=== PATIENT | male | born 1940 | race Caucasian/White ===

== ENCOUNTER 2018-05-13 10:41 | Outpatient (CLI) | payer MEDICARE, BC ==
--- NOTE | 2018-05-13 12:04 | RAD ---
THREE VIEWS LUMBAR SPINE: History: Patient complaining of back pain. Technique: Lateral, flexion, and extension views of the lumbar spine obtained. Comparison: 01-15-05 FINDINGS: Images demonstrate disc space height loss which is significantly increased since the previous compari son radiograph of the lumbar spine at L4-5. There is increasing anterolisthesis of L4 on L5 with appr oximately 10 mm of anterolisthesis of L4 on L5. This does not significantly change on flexion or exte nsion views. There is also some disc space height loss at L5-S1. IMPRESSION: Grade II anterolisthesis of L4 on L5 which does not significantly change on neutral, flexion, or exte nsion views. POS: [facility]
--- NOTE | 2018-05-13 12:35 | MRI ---
MRI LUMBAR SPINE NONCONTRAST: DATE: 05/13/18 HISTORY: 78-year-old male with M48.062 lumbar stenosis with neurogenic claudication. COMPARISON: 01/15/2005. FINDINGS: Vertebral body heights are maintained. There are multiple bilateral T2 hyperintense and T1 hypointens e renal masses, at least the majority of which are cysts. Many are incompletely visualized. The large st is a 3.3 cm lesion in the left kidney. No hydronephrosis. No major pathology of perivertebral spac es. Vertebral body heights are maintained. There are Modic Type I end plate bone marrow edema changes at L4-5. The bone marrow signal is normal at all other levels. T12-L1: Normal. L1-2: Mild disc bulge. Small right nerve root sleeve cyst. No high grade neural foraminal stenosis. No central stenosis. Conus medullaris terminates at L2. Disc space maintained. L2-3: Disc space maintained. Mild disc bulge, larger than in 2005. Interval mild progression of bila teral degenerative facet changes, mild to moderate, with ligamentum flavum thickening. Together, thes e factors result in somewhat severe central spinal canal stenosis and somewhat severe thecal sac sten osis, with the caliber significantly smaller than in 2005. There is now a new finding of mild to mode rate bilateral neural foraminal stenosis. L3-4: No high grade disc space narrowing. Interval worsening of now prominent diffuse disc bulge. In terval worsening of now moderate to severe bilateral degenerative facet changes. Interval development of now very severe central spinal canal stenosis. Interval development of mild to moderate right keisha ral foraminal stenosis and moderate to severe left neural foraminal stenosis. L4-5: Interval worsening of the already severe bilateral degenerative facet disease has resulted in interval worsening of the anterolisthesis of L4 on L5, which is now Grade II. Interval worsening of n ow severe disc space narrowing. Interval development of multifocal tiny end plate irregularities. Pro minent diffuse disc bulge. Interval worsening of bilateral neural foraminal stenosis, now moderate to severe bilaterally, right worse than left. Very severe central spinal canal stenosis and very severe lateral recess stenosis bilaterally. Some time after the previous 2005 MRI, a midline laminectomy pr ocedure was performed. This has resulted in slight interval increase in the thecal sac diameter in th e anteroposterior dimension directly inferior to the disc space level, but the degree of central spin al canal stenosis remains very severe at the disc space level. L5-S1: Again demonstrated is the moderate to severe disc space narrowing, and slight degenerative re trolisthesis of L5 on S1. Circumferential disc bulge-osteophytic bar complex. Interval worsening of m ild bilateral degenerative facet hypertrophy. Interval development of narrowing of the transverse annemarie meter of the spinal canal. Small central/left-paracentral focal disc-osteophyte complex in addition t o the broad disc bulge. Overall mild to moderate central spinal canal stenosis. Bilateral mild to mod erate neural foraminal stenosis. There is an old midline laminectomy defect at L5-S1 which occurred s ome time after the previous MRI of 2004. This results in slightly increased anteroposterior dimension of the spinal canal and thecal sac. The very severe central spinal canal stenoses at L3-4 and L4-5 result in tortuosity of the cauda equi na (as seen on sagittal images) from upper L1 level to L3-4. IMPRESSION: 1. Lumbar spondylosis has worsened since 2004. 2. Interval development of extremely severe central spinal canal stenosis at L3-4. 3. Interval worsening of the spondylolisthesis, now Grade II, and interval worsening of now severe d egenerative disc disease, at L4-5, due to interval worsening of very severe facet osteoarthrosis. 4. Despite interval midline laminectomy at L4-5, there continues to be very severe central spinal ca nal stenosis at L4-5. 5. Interval worsening of now moderate to severe central stenosis at L2-3. 6. Interval worsening of bilateral neural foraminal stenosis at several levels. 7. Interval midline laminectomy at L5-S1, some time after the 2004 MRI. GE Foley POS: [facility]
== END 2018-05-13 10:42 | disposition home or self-care (01) ==
LOC: TBSIIMAG 10:41
PROVIDERS: ATTEND Neurological Surgery
DX: M48.062 Spinal stenosis, lumbar region with neurogenic claudication (principal); M43.16 Spondylolisthesis, lumbar region; M51.36 Other intervertebral disc degeneration, lumbar region; M47.816 Spondylosis without myelopathy or radiculopathy, lumbar region; Z98.890 Other specified postprocedural states
CPT/HCPCS: 72100; 72148

== ENCOUNTER 2018-06-11 05:51 | Inpatient (IN) | payer MEDICARE, BC ==
[2018-06-06 09:24] VITALS: BMI 28.7
[2018-06-11] MEDS ORDERED: Sodium Chloride 0.9% 10 ML ONE (06:27)
[2018-06-11] MEDS ORDERED: Fentanyl 100 MCG/2 ML VIAL ONE ×3 (06:30→09:43)
[2018-06-11] MEDS ORDERED: Midazolam HCl 2 mg/2 ml Vial ONE (06:30)
[2018-06-11 06:32] LABS: Hemoglobin 14.7 g/dL (14.0-18.0); Mean Corpuscular HGB CONC 33.6 g/dL (32.0-36.0); Mean Corpuscular Hemoglobin 31.7 pg (27.0-31.0); Mean Corpuscular Volume 94.5 fL (78.0-98.0); Mean Platelet Volume 7.4 fL (7.4-10.4); Platelet Count 225 thou/uL (130-400); RBC Distribution Width 12.4 % (11.5-14.5); Red Blood Cell (RBC) Count 4.65 mill/uL (4.70-6.10); White Blood Cell (WBC) Count 5.7 thou/uL (4.8-10.8)
[2018-06-11] MEDS ORDERED: CEFAZOLIN 2 GM/50 ML BAG ONE (06:34)
[2018-06-11 07:29] LABS: Anion Gap 11 mmol/L (10-20); BUN (Urea Nitrogen) 13 mg/dL (8.4-25.7); Calc. Creatinine Clearance 66 mL/min (70-130); Calcium 9.5 mg/dL (7.8-10.44); Carbon Dioxide 26 mmol/L (23-31); Chloride 106 mmol/L (98-107); Estimated GFR-MDRD 61; Glucose 97 mg/dL (83-110); Potassium 3.6 mmol/L (3.5-5.1); Sodium 139 mmol/L (136-145)
--- NOTE | 2018-06-11 09:08 | OP ---
DATE OF PROCEDURE: 06/11/2018 PARAMEDIC SUPERVISOR: Harpreet. PROCEDURES: L3-4 and L4-5 decompressive laminectomy, posterolateral arthrodesis, demineralized bone matrix, pedicle screw instrumentation, and local morselized autograft, L3-L5. DESCRIPTION OF PROCEDURE: The patient was brought to the operating room and intubated. He was rolled in a prone position on gel-filled chest rolls. The previous incision was reopened and extended superiorly exposing L3 through L5 and the level was confirmed by x-ray. We performed complete L3, residual L4, and superior L5 laminectomies completely decompressing the L3-4 and L4-5 interspaces. Next, pedicle screws were placed at right L3, right L4, and right L5 using lateral fluoroscopic guidance and the position was confirmed by x-ray, and the verónica was secured between the screws connected by nuts, which were final tightened. The wound was then extensively irrigated and maximum hemostasis was secured. A combination of demineralized bone matrix and local morselized autograft was laid over the left lamina posterolateral surfaces for the purpose of arthrodesis. Vancomycin powder was applied, and the wound was closed in anatomic layers over a drain. Job ID: [id number]
[2018-06-11] MEDS ORDERED: Promethazine HCl 25 MG/ML VIAL IM PRN ×2 (09:17→09:39)
[2018-06-11] MEDS ORDERED: Promethazine HCl 25 MG/ML VIAL SLOW IVP PRN (09:17)
[2018-06-11] MEDS ORDERED: Ondansetron HCl/PF 4 MG/2 ML Vial IVP PRN (09:17)
[2018-06-11] MEDS ORDERED: diphenhydrAMINE 50 MG/ML VIAL IVP PRN (09:39)
[2018-06-11] MEDS ORDERED: tiZANidine HCl 4 MG TAB PO PRN (09:39)
[2018-06-11] MEDS ORDERED: Milk Of Magnesia 30 ML UDCUP PO PRN (09:39)
[2018-06-11] MEDS ORDERED: Morphine 4 MG/ML VIAL SLOW IVP PRN (09:39)
[2018-06-11] MEDS ORDERED: Promethazine HCl 12.5 MG SUPP PR PRN (09:39)
[2018-06-11] MEDS ORDERED: traMADol HCl 50 MG TAB PO PRN ×2 (09:39)
[2018-06-11] MEDS ORDERED: Promethazine 25 MG TAB PO PRN (09:39)
[2018-06-11] MEDS ORDERED: Mag-Al 1200 mg/1200 mg/30 ML UDCUP PO PRN (09:39)
[2018-06-11] MEDS ORDERED: diphenhydrAMINE 25 MG CAP PO PRN (09:39)
[2018-06-11] MEDS ORDERED: HYDROcodone/Acetaminophen 10/325 mg Tablet PO PRN (09:39)
[2018-06-11] MEDS ORDERED: Acetaminophen 500 MG TAB PO PRN (09:48)
[2018-06-11] MEDS ORDERED: Morphine 2 MG/ML SYRINGE SLOW IVP PRN (10:15)
[2018-06-11] MEDS: HYDROcodone/Acetaminophen 10/325 mg Tablet PO PRN ×3 (11:01→21:11)
--- NOTE | 2018-06-11 15:02 | PDOC.PN ---
- Subjective Encounter Start Date: 06/11/18 Encounter Start Time: 15:00 Pt seen for management of medical comorbidities including hypothyroidism. c/o pain at surgical site (09/17), but otherwise no complaints. - Objective MAR Reviewed: Yes Vital Signs & Weight: Vital Signs (12 hours) Temp Pulse Resp BP 06/11/18 11:45 97.6 F 58 L 16 116/67 06/11/18 10:15 97.3 F L 59 L 18 115/69 Weight Weight 200 lb Result Diagrams: 06/11/18 06:23 06/11/18 06:23 Additional Labs: labs reviewed by me Phys Exam - Physical Examination Constitutional: NAD HEENT: moist MMs Neck: supple Respiratory: clear to auscultation bilateral Cardiovascular: RRR Gastrointestinal: soft Neurological: moves all 4 limbs Psychiatric: normal affect Dx/Plan (1) Hypothyroidism Code(s): E03.9 - HYPOTHYROIDISM, UNSPECIFIED Status: Chronic Comment: continue synthroid (2) Overactive bladder Code(s): N32.81 - OVERACTIVE BLADDER Status: Chronic Comment: continue trospium (3) GERD (gastroesophageal reflux disease) Code(s): K21.9 - GASTRO-ESOPHAGEAL REFLUX DISEASE WITHOUT ESOPHAGITIS Status: Chronic Comment: continue PPI - Plan * . Review of Systems - Review of Systems Cardiovascular: negative: chest pain, palpitations, orthopnea, paroxysmal nocturnal dyspnea, edema, light headedness Gastrointestinal: negative: Nausea, Vomiting, Abdominal Pain, Diarrhea, Constipation, Melena, Hematochezia - Medications/Allergies Allergies/Adverse Reactions: Allergies Allergy/AdvReac Type Severity Reaction Status Date / Time No Known Allergies Allergy Verified 06/11/18 10:31 Medications: Current Medications Acetaminophen (Tylenol) 1,000 mg PO Q6H PRN PRN Reason: Headache/Fever or Mild Pain Hydrocodone Bitart/Acetaminophen ([place] 10/325) 1 tab PO Q4H PRN PRN Reason: PAIN (1-3) Hydrocodone Bitart/Acetaminophen ([place] 10/325) 2 tab PO Q4H PRN PRN Reason: PAIN (4-6) Last Admin: 06/11/18 11:01 Dose: 2 tab Al Hydroxide/Mg Hydroxide (Maalox) 30 ml PO Q4H PRN PRN Reason: Heartburn or Indigestion Cyanocobalamin (Vitamin B-12) 0 mcg PO DAILY NELY Diphenhydramine HCl (Benadryl) 25 mg PO Q6H PRN PRN Reason: Itching Diphenhydramine HCl (Benadryl) 25 mg IVP Q6H PRN PRN Reason: Itching Cefazolin Sodium/Dextrose 2 gm (/ Device) 50 mls @ 100 mls/hr IVPB 0800,1600, 2359 NELY Levothyroxine Sodium (Synthroid) 125 mcg PO 0600 NELY Magnesium Hydroxide (Milk Of Magnesium) 30 ml PO Q12H PRN PRN Reason: Constipation Morphine Sulfate (Morphine) 4 mg SLOW IVP Q1H PRN PRN Reason: SEVERE BREAKTHROUGH PAIN Morphine Sulfate (Morphine) 2 mg SLOW IVP Q1H PRN PRN Reason: Moderate Breakthrough Pain Ondansetron HCl (Zofran) 4 mg IM Q24H PRN PRN Reason: Nausea/Vomiting Pantoprazole Sodium (Protonix) 40 mg PO Q2DAYS NELY Promethazine HCl (Phenergan) 12.5 mg IM Q4H PRN PRN Reason: Nausea/Vomiting Promethazine HCl (Phenergan) 12.5 mg PO Q4H PRN PRN Reason: Nausea/Vomiting Promethazine HCl (Phenergan Suppository) 12.5 mg NE Q4H PRN PRN Reason: Nausea/Vomiting Sodium Chloride (Flush - Normal Saline) 10 ml IVF Q12HR NELY Sodium Chloride (Flush - Normal Saline) 10 ml IVF PRN PRN PRN Reason: Saline Flush Tizanidine HCl (Zanaflex) 4 mg PO Q6H PRN PRN Reason: MUSCLE SPASM Tramadol HCl (Ultram) 50 mg PO Q6H PRN PRN Reason: PAIN (1-3) Tramadol HCl (Ultram) 100 mg PO Q6H PRN PRN Reason: PAIN (4-6) Trospium (Trospium) 20 mg PO BID [facility]
[2018-06-11] MEDS: CEFAZOLIN 2 GM/50 ML-DEXTROSE 2 GM in Premix Bag 1 BAG IVPB SCH ×2 (15:34→23:29)
[2018-06-11] MEDS ORDERED: hydrALAZINE 20 MG/ML VIAL SLOW IVP PRN (17:23)
[2018-06-11] MEDS: TROSPIUM 20 MG TABLET PO SCH (21:11)
[2018-06-12] MEDS: HYDROcodone/Acetaminophen 10/325 mg Tablet PO PRN (01:55)
[2018-06-12] MEDS ORDERED: Levothyroxine Sodium 125 MCG TAB PO SCH (06:00)
[2018-06-12 08:04] VITALS: BP 154/74; TEMP 97.6
[2018-06-12] MEDS: CEFAZOLIN 2 GM/50 ML-DEXTROSE 2 GM in Premix Bag 1 BAG IVPB SCH (08:20)
[2018-06-12] MEDS: TROSPIUM 20 MG TABLET PO SCH (08:20)
[2018-06-12] MEDS ORDERED: Ondansetron PF 4 MG/2 ML Vial IM PRN (08:54)
[2018-06-12] MEDS ORDERED: Cyanocobalamin (Vitamin B-12) 1,000 MCG TAB PO SCH (09:00)
--- NOTE | 2018-06-12 22:35 | DIS ---
DATE OF ADMISSION: 06/11/2018 DATE OF DISCHARGE: 06/12/2018 HOSPITAL COURSE: The patient is a 78-year-old male, status post L3 through L5 decompression and fusion. Following the surgery, he was transitioned to the Med/Surg floor, where his pain was well controlled with p.o. medications, he was tolerating a regular diet and voiding easily. He did have a RAMONE drain placed intraoperatively and the output trended down some mL from overnight on postoperative day #1. The patient reports he is feeling well and would like to transition to home today from hospital. He is sitting in the bed comfortably, awake, alert and in no acute distress. He has free active range of motion of all extremities. No focal motor weakness. No reflex asymmetry. Dressing is dry. We will plan to dismiss the patient to home following removal of RAMONE drain. I have discussed home care precautions and we will send the patient to home with scripts for hydrocodone, Zanaflex, and Keflex. He will follow up in 2 weeks at the office with x-rays. Job ID: [id number]
== END 2018-06-12 10:21 | disposition home or self-care (01) | DRG 460 ==
LOC: SURG A 05:51 → SURG B 09:41
PROVIDERS: ADMIT Neurological Surgery; ATTEND Neurological Surgery
PROC: 0SG1071 Fusion of 2 or more Lumbar Vertebral Joints with Autologous Tissue Substitute, Posterior Approach, Posterior Column, Open Approach (ICD-10-PCS; principal; 2018-06-11)
DX: M48.062 Spinal stenosis, lumbar region with neurogenic claudication (principal); E03.9 Hypothyroidism, unspecified; N32.81 Overactive bladder; K21.9 Gastro-esophageal reflux disease without esophagitis
CPT/HCPCS: 36415; 80048; 85027; 93005; 93010; C1713; C1768; J2250; J3010; J3370; J3490

== ENCOUNTER 2018-06-25 15:16 | Outpatient (CLI) | payer MEDICARE, BC ==
--- NOTE | 2018-06-25 18:04 | RAD ---
LUMBAR SPINE TWO VIEWS: 06/25/18 HISTORY: Lumbar stenosis with neurogenic claudication. COMPARISON: 05/13/18. FINDINGS: Five lumbar type vertebral bodies. Right sided transpedicular screw at L3, L4, and L5. Laminectomy de fect at L4 and L5. Skin ophelia are noted. On the lateral projection, there is persistent anterolisthesis of L4 upon L5 measuring 7 mm. There is stable degenerative change in the distal thoracic spine. Moderate loss of disc space at L5-S 1 is again noted. IMPRESSION: Lumbar fusion from L3 to L5 as described above. POS: [facility]
== END 2018-06-25 15:17 | disposition home or self-care (01) ==
LOC: TBSIIMAG 15:16
PROVIDERS: ATTEND Neurological Surgery
DX: M48.062 Spinal stenosis, lumbar region with neurogenic claudication (principal); Z98.1 Arthrodesis status
CPT/HCPCS: 72100

== ENCOUNTER 2018-08-13 15:04 | Outpatient (CLI) | payer MEDICARE, BC ==
--- NOTE | 2018-08-13 16:18 | RAD ---
LUMBOSACRAL SPINE TWO VIEWS: HISTORY: Status post fusion. Follow-up exam. COMPARISON: 06/25/2018 FINDINGS: Two views of the lumbosacral spine show the patient to be status post posterior fusion of L3 through L5 with right-sided pedicle screws. Laminectomies have been performed at L4 and L5. No perihardware lucency is seen. There is stable grade 1 anterolisthesis of L4 on L5. IMPRESSION: Stable post surgical changes of the lumbar spine. POS: [facility]
== END 2018-08-13 15:05 | disposition home or self-care (01) ==
LOC: TBSIIMAG 15:04
PROVIDERS: ATTEND Neurological Surgery
DX: M51.36 Other intervertebral disc degeneration, lumbar region (principal); M48.062 Spinal stenosis, lumbar region with neurogenic claudication; Z98.1 Arthrodesis status
CPT/HCPCS: 72100

== ENCOUNTER 2021-06-22 10:53 | Outpatient (CLI) | payer MEDICARE, BC ==
[2021-06-22] MEDS ORDERED: Magnevist 469MG/ML 20 ML VIAL ONE (14:24)
== END 2021-06-22 10:54 | disposition home or self-care (01) ==
LOC: SCSMRI 10:53 → BICMRI 10:54
PROVIDERS: ATTEND Family Medicine
DX: M54.50 Low back pain, unspecified (principal); M48.061 Spinal stenosis, lumbar region without neurogenic claudication; M51.26 Other intervertebral disc displacement, lumbar region; M51.9 Unspecified thoracic, thoracolumbar and lumbosacral intervertebral disc disorder; M43.16 Spondylolisthesis, lumbar region; Z98.890 Other specified postprocedural states
CPT/HCPCS: 72158; 82565; A9579

== ENCOUNTER 2022-07-02 10:36 | Outpatient (CLI) | payer MEDICARE, BC | END 2022-07-02 10:37 | disposition home or self-care (01) | LOC: BICRAD 10:36 | PROVIDERS: ATTEND Family Medicine | DX: M25.551 Pain in right hip (principal); M16.11 Unilateral primary osteoarthritis, right hip ==